=== PATIENT | female | born 1985 | race Caucasian/White ===

== ENCOUNTER → 2017-09-30 | Outpatient (CLI) | payer OTHER ==
--- NOTE | 2017-09-30 13:22 | RAD ---
Examination: Right hip, two views History: Pain after stepping out of bed Findings: There is no evidence for recent injury, bone destruction or significant degenerative arthro delores. The femoral head is in normal position. There is a prominent soft tissue density in the pelvis , without evidence for calcification. Impression: 1. No acute right hip abnormality demonstrated. 2. Soft tissue increase in the true pelvic cavity may represent uterine enlargement. Correlate with c linical findings. Reported By:
--- NOTE | 2017-09-30 13:26 | RAD ---
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 Alignment of vertebrae is normal. There is no evidence for fracture, subluxation or significant co ngenital deformity. Disc spaces are preserved. There is suggestion of uterine enlargement. Impression: 1. 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 2. No significant lumbar spine abnormality noted. Reported By:
== END ==
LOC: RAD 12:24
PROVIDERS: ATTEND Nurse Practitioner Family
DX: M25.551 Pain in right hip (principal); M54.5 Low back pain
CPT/HCPCS: 72110; 73501